=== PATIENT | female | born 1950 | race Caucasian/White ===

== ENCOUNTER → 2017-01-08 | Outpatient (REF) | payer MEDICARE ==
[2017-01-08 12:13] LABS: BASO % 0.4 % (0.0-1.0); EOS # 0.2 K/mm3 (0.0-0.50); EOS % 3.2 % (0.0-3.0); LARGE UNSTAINED CELL # 0.1 K/mm3 (0.0-0.4); LARGE UNSTAINED CELL % 1.3 % (0.0-4.0); LYMPH # 0.9 K/mm3 (1.5-4.5); LYMPH % 17.7 % (24.0-44.0); MEAN CORPUSCULAR HEMOGLOBIN 31.6 pg (27.0-33.0); MEAN CORPUSCULAR HGB CONC 33.6 g/dl (32.0-36.5); MEAN CORPUSCULAR VOLUME 94.2 fl (80.0-96.0); MONO # 0.3 K/mm3 (0.0-0.8); MONO % 5.7 % (0.0-5.0); NEUTROPHILS # 3.2 K/mm3 (1.8-7.7); NEUTROPHILS % 71.7 % (36.0-66.0); PLATELET COUNT, AUTOMATED 154 k/mm3 (150-450); RED CELL DISTRIBUTION WIDTH 12.4 % (11.5-14.5); WHITE BLOOD COUNT 4.5 K/mm3 (4.0-10.0)
[2017-01-08 12:33] LABS: FOLATE > 24.0 NG/ML (>5.4); VITAMIN B12 LEVEL 495 PG/ML (247-911)
[2017-01-08 12:47] LABS: ALBUMIN 4.2 GM/DL (3.2-5.2); ALBUMIN/GLOBULIN RATIO 1.56 (1.00-1.93); ALKALINE PHOSPHATASE 98 U/L (45-117); ALT/SGPT 20 U/L (12-78); ANION GAP 6 MEQ/L (8-16); AST/SGOT 14 U/L (15-37); BILIRUBIN,TOTAL 0.5 MG/DL (0.2-1.0); BLOOD UREA NITROGEN 11 MG/DL (7-18); CALCIUM LEVEL 9.2 MG/DL (8.8-10.2); CARBON DIOXIDE LEVEL 31 MEQ/L (21-32); CHLORIDE LEVEL 107 MEQ/L (98-107); CHOLESTEROL LEVEL 200 MG/DL (<200); GLOMERULAR FILTRATION RATE > 60.0 (>45); GLUCOSE, FASTING 99 MG/DL (80-110); POTASSIUM SERUM 4.3 MEQ/L (3.5-5.1); SODIUM LEVEL 144 MEQ/L (136-145); THYROXINE (T4) 10.5 UG/DL (4.5-12.0); TOTAL PROTEIN 6.9 GM/DL (6.4-8.2); TRIGLYCERIDES LEVEL 114 MG/DL (<150)
== END ==
LOC: M SFHCCLAY 07:39
PROVIDERS: ATTEND Family Medicine
DX: D72.819 Decreased white blood cell count, unspecified (principal); E78.5 Hyperlipidemia, unspecified; E03.9 Hypothyroidism, unspecified; E55.9 Vitamin D deficiency, unspecified; Z79.899 Other long term (current) drug therapy
CPT/HCPCS: 80053; 80061; 82607; 82652; 82746; 83540; 84436; 84443; 84480; 85025; G0463

== ENCOUNTER → 2017-03-30 | Outpatient (CLI) | payer MEDICARE ==
--- NOTE | 2017-04-03 14:56 | REP ---
MRI STUDY WITHOUT AND WITH IV GADOLINIUM: HISTORY: Adrenal lesions seen on recent CT. CT study is retrieved from [facility] dated March 18, 2017. The gadolinium enhancement dose is 7.5 mL , half-dose protocol, of intravenous ProHance. MR TECHNIQUE: Axial and coronal T1 and T2-weighted scans were obtained. Sequences include TRUE FISP, in and [id number], 2D gradient echo, and turbo spin echo sequences. MRI FINDINGS: No renal, splenic or pancreatic abnormality is observed. There is a 2.8 cm septated simple cyst in the right lobe of the liver and one or two other tiny cysts are seen in the liver. The aorta is tortuous but not aneurysmal. No liver mass lesion is seen. There is thickening of the adrenal glands bilaterally, left more so than right. The adreniform shape of the glands are preserved. The CT study shows some calcification in the thickened left adrenal gland. Today's [id number] MR sequence demonstrate signal loss in the adrenal glands bilaterally consistent with intralesional fat content and a benign etiology . Postcontrast enhanced images demonstrate minimal enhancement in a portion of the left adrenal gland. No definite mass-like features are seen. There is no evidence of adenopathy. No other abnormality is observed. IMPRESSION: A combination CT and MRI findings are most compatible with benign granulomatous changes in the adrenal glands and some hypertrophy. No definite mass lesion is seen. A 6-month follow-up CT study is suggested to document stability. Signed by Nemesio Shelley MD 04/03/2017 04:40 P
== END ==
LOC: M RAD 06:41
PROVIDERS: ATTEND Family Medicine
DX: E27.9 Disorder of adrenal gland, unspecified (principal)
CPT/HCPCS: 74183; A9576

== ENCOUNTER → 2017-04-10 | Outpatient (REF) | payer MEDICARE ==
[2017-04-10 11:00] LABS: BASO % 0.6 % (0.0-1.0); EOS # 0.1 K/mm3 (0.0-0.50); EOS % 3.5 % (0.0-3.0); LARGE UNSTAINED CELL # 0.1 K/mm3 (0.0-0.4); LARGE UNSTAINED CELL % 1.8 % (0.0-4.0); LYMPH # 0.8 K/mm3 (1.5-4.5); LYMPH % 22.4 % (24.0-44.0); MEAN CORPUSCULAR HEMOGLOBIN 32.2 pg (27.0-33.0); MEAN CORPUSCULAR HGB CONC 33.7 g/dl (32.0-36.5); MEAN CORPUSCULAR VOLUME 95.5 fl (80.0-96.0); MONO # 0.2 K/mm3 (0.0-0.8); MONO % 5.6 % (0.0-5.0); NEUTROPHILS # 2.2 K/mm3 (1.8-7.7); PLATELET COUNT, AUTOMATED 161 k/mm3 (150-450); RED CELL DISTRIBUTION WIDTH 12.2 % (11.5-14.5); WHITE BLOOD COUNT 3.3 K/mm3 (4.0-10.0)
[2017-04-10 11:24] LABS: ERYTHROCYTE SEDIMENTATION RATE 4 mm/hr (0-30)
[2017-04-10 11:42] LABS: ALBUMIN 4.1 GM/DL (3.2-5.2); ALBUMIN/GLOBULIN RATIO 1.28 (1.00-1.93); ALKALINE PHOSPHATASE 85 U/L (45-117); ALT/SGPT 22 U/L (12-78); ANION GAP 4 MEQ/L (8-16); AST/SGOT 13 U/L (15-37); BILIRUBIN,TOTAL 0.6 MG/DL (0.2-1.0); BLOOD UREA NITROGEN 13 MG/DL (7-18); CALCIUM LEVEL 9.6 MG/DL (8.8-10.2); CARBON DIOXIDE LEVEL 30 MEQ/L (21-32); CHLORIDE LEVEL 109 MEQ/L (98-107); CREATININE FOR GFR 0.83 MG/DL (0.55-1.02); GLOMERULAR FILTRATION RATE > 60.0 (>45); GLUCOSE, FASTING 85 MG/DL (80-110); POTASSIUM SERUM 4.2 MEQ/L (3.5-5.1); SODIUM LEVEL 143 MEQ/L (136-145); THYROXINE (T4) 10.3 UG/DL (4.5-12.0); TOTAL PROTEIN 7.3 GM/DL (6.4-8.2)
[2017-04-10 16:20] LABS: CORTISOL AM 15.3 UG/DL (4.3-22.4)
[2017-04-13 00:06] LABS: Lyme Disease IgG/IgM Antibodie <0.91 ISR (0.00-0.90); Lyme Disease IgM Ab Quantitati <0.80 index (0.00-0.79)
== END ==
LOC: M SFHCCLAY 08:37
PROVIDERS: ATTEND Family Medicine
DX: M79.1 Myalgia (principal); R53.83 Other fatigue; H53.8 Other visual disturbances; E27.9 Disorder of adrenal gland, unspecified; E03.9 Hypothyroidism, unspecified
CPT/HCPCS: 80053; 82533; 84436; 84443; 84480; 85025; 85652; 86038; 86140; 86200; 86431; 86617; 86663; 86664; 86665; G0463

== ENCOUNTER → 2017-04-15 | Outpatient (CLI) | payer MEDICARE ==
--- NOTE | 2017-04-15 15:23 | REP ---
MR BRAIN WITHOUT CONTRAST: HISTORY: Headache. An area of mixed signal intensity on T1 and T2-weighted images is present in the right basal ganglia. This represents an old lacunar infarction with a chronic hemorrhagic component. Areas of increased signal intensity on T2-weighted images are present in the periventricular and subcortical white matter and cr. This represents small vessel ischemic disease. There is no acute intraparenchymal hemorrhage, acute infarct, mass or midline shift. The ventricular system is normal in appearance. The cortical sulci are dilated consistent with minimal volume loss. There is no extracerebral collection. The sinuses are clear. IMPRESSION: 1. Old right basal ganglia lacunar infarction. 2. Small vessel ischemic disease. 3. Minimal volume loss. Signed by Hernesto Abdullahi MD 04/15/2017 03:27 P
== END ==
LOC: M RAD 12:58
PROVIDERS: ATTEND Family Medicine
DX: R51 Headache (principal)

== ENCOUNTER → 2017-06-29 | Outpatient (REF) | payer MEDICARE | LOC: M SFHCCLAY 11:14 | PROVIDERS: ATTEND Family Medicine | DX: E03.9 Hypothyroidism, unspecified (principal) | CPT/HCPCS: 84436; 84443; 84480; G0463 ==

== ENCOUNTER → 2017-07-17 | Outpatient (REF) ==
--- NOTE | 2017-07-17 15:33 | REP ---
AP AND LATERAL SKULL, TWO VIEWS: HISTORY: Autopsy. There are fractures of the parietal, left frontal, and temporal bones. Multiple metallic densities are present in the calvarium and facial bones. Pneumocephalus is present. IMPRESSION: Findings as described above. Signed by Hernesto Abdullahi MD 07/17/2017 03:36 P
== END ==
LOC: M LAB 12:42
DX: Z00.00 Encounter for general adult medical examination without abnormal findings (principal)